=== PATIENT | male | born 1975 | race Caucasian/White ===

== ENCOUNTER 2020-01-03 11:40 | Outpatient (REF) | payer OTHER, SELFPAY | END 2020-01-03 11:41 | disposition home or self-care (01) | LOC: HO.HMGCLDS 11:40 | PROVIDERS: Visit Provider Internal Medicine | DX: Z20.828 Contact with and (suspected) exposure to other viral communicable diseases (principal) | CPT/HCPCS: C9803; U0003 ==

== ENCOUNTER 2020-08-09 06:10 | Emergency (ER) | payer OTHER, SELFPAY ==
--- NOTE | ~2020-08-09 | XR_ITS ---
EXAMINATION: XR LUMBOSACRAL SPINE CLINICAL INFORMATION: Pain COMPARISON: None TECHNIQUE: Three views of the lumbosacral spine. FINDINGS: Bone alignment is normal. No fracture or dislocation is seen. Disc spaces are normal. Paraspinal soft tissues are normal. XR/XR lumbar spine 2-3V IMPRESSION: Unremarkable examination.
[2020-08-09 06:27] VITALS: BP 136/83; PULSE 63; RESP 16; TEMP 36.3; O2SAT 98; BMI 24.0
--- NOTE | 2020-08-09 07:00 | PC.NURSE ---
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 Has not taken any meds, iced, etc.. Awaiting MD currie.
--- NOTE | 2020-08-09 07:07 | ED_ITS ---
HPI - Back Pain/Injury General Chief Complaint: Back Pain/Injury Stated Complaint: lower back pain Time Seen by Provider: 08/09/20 07:07 Source: patient Mode of arrival: ambulatory Limitations: no limitations History of Present Illness HPI Narrative: Patient with right lower back pain. Patient has a history of back pain. Saw arthritis doctors in the past. Patient sees a doctor in [place] elicited complaint: back pain Pertinent past history: prior back pain Onset (ago): year(s) Timing: intermittent Severity: mild Similar Symptoms Previously: Yes Quality: burning Location: lumbar spine Radiation: right upper leg Exacerbating factors: movement Relieving factors: none Context: while lifting Related Data Previous Rx's Medication Instructions Recorded cyclobenzaprine 10 mg PO TID #10 tab 08/09/20 naproxen [Naprosyn] 500 mg PO BID #20 tab 08/09/20 Allergies Allergy/AdvReac Type Severity Reaction Status Date / Time No Known Allergies Allergy Unverified 11/04/19 15:13 Review of Systems Constitutional: Constitutional: Reports no additional constitutional complaints Eyes: Eyes: Reports no additional eye complaints ENT: Denies dizziness Cardiovascular: Cardiovascular: Reports no additional cardiovascular complaints Respiratory: Respiratory: Reports as per HPI Gastrointestinal: Gastrointestinal: Reports no additional gastrointestinal complaints Musculoskeletal: Musculoskeletal: Reports no additional musculoskeletal complaints Integumentary/Breasts: Skin/Breast: Denies rash Neurologic: Reports system reviewed and no additional complaints, except as documented, Denies dizziness and Denies Sensory deficit (Neuro) Psychiatric: Psychiatric: Denies anxiety PMFSH Social History Social History Advance Directives: No Advance Directives Information Provided: Yes Physical Exam Vital Signs: Vital Signs: Last Vital Signs Temp 97.4 F 08/09/20 06:27 Pulse 63 08/09/20 06:27 Resp 16 08/09/20 06:27 BP 136/83 08/09/20 06:27 Pulse Ox 98 08/09/20 06:27 Body Mass Index 24.0 Const: General: healthy appearing Nutritional Appearance: average body habitus Orientation/consciousness: oriented to person and patient oriented x3 Limitations: no limitations HENMT: Head: Yes normal to inspection Ears: external ears normal General nose exam: Normal external nose present Mouth: Normal oral and palatal mucosa present and oropharynx normal Throat: Yes posterior oropharynx normal Eyes: General: appearance normal, both eyes and all related structures Neck: Other: supple Neck: Yes normal visual inspection Chest: Chest palpation & inspection: normal inspection of the chest Resp: Auscultation: clear to auscultation bilaterally Cardio: Jugular venous distension: no JVD Rate: regular rate Rhythm: regular rhythm Heart sounds: S1 normal heart sound present and S2 normal heart sound present GI: Inspection: Yes normal to inspection Palpation (GI): Soft to palpation, nontender and No hepatosplenomegaly present Auscultation: normal bowel sounds Back/Spine/Pelvis: Other: right SI pain and sciatica pain, no neuro deficits. Normal dorsiflexion and plantar flexion Skin: General skin exam: no rashes or lesions noted Neuro: General: oriented to person and patient oriented x3 Cranial nerves: Yes CN's II-XII intact bilaterally Motor exam (neuro): 5/5 motor strength present throughout Sensory Exam: No Sensory deficit (Neuro) Extrem: General: Yes normal to inspection Psych: Appearance: grossly normal Course Course Course Narrative: Patient with SI joint and sicatica inflammation will start NSAIDs and flexeril MDM - Back Pain/Injury Imaging Data lumbar xray: Radiologist's impression: normal lumbosacral spine Discharge Plan Discharge Clinical Impression: Lumbar radiculopathy Strain of lumbar region Qualifiers: Encounter type: initial encounter Qualified Code(s): S39.012A - Strain of muscle, fascia and tendon of lower back, initial encounter Sciatica Qualifiers: Laterality: right Qualified Code(s): M54.31 - Sciatica, right side Patient Disposition: Home, Self-Care Instructions: Sciatica (ED), Lumbar Radiculopathy (ED) Prescriptions: New cyclobenzaprine 10 mg tablet 10 mg PO TID Qty: 10 RF: 0 naproxen [Naprosyn] 500 mg tablet 500 mg PO BID Qty: 20 RF: 0 Referrals: Physician,Unknown [Primary Care Provider] - 2 days
[2020-08-09] MEDS: Cyclobenzaprine HCl 10 MG TABLET PO (07:23)
[2020-08-09] MEDS: Ketorolac Tromethamine 60 MG/2 ML VIAL IM (07:24)
== END 2020-08-09 09:07 | disposition home or self-care (01) ==
PROVIDERS: Emergency Provider Emergency Medicine
DX: S39.012A Strain of muscle, fascia and tendon of lower back, initial encounter (principal); M54.41 Lumbago with sciatica, right side; X58.XXXA Exposure to other specified factors, initial encounter; Y93.9 Activity, unspecified; Y92.9 Unspecified place or not applicable; Y99.9 Unspecified external cause status
CPT/HCPCS: 72100; 96372; 99283; 99284; J1885